=== PATIENT | male | born 1995 | race Caucasian/White ===

== ENCOUNTER 2017-05-10 23:19 | Observation (INO) ==
[2017-05-10 23:44] LABS: Bilirubin,Urine Negative (Negative); Blood,Urine Negative (Negative); Clarity,Urine Clear (Clear); Color,Urine Yellow (Yellow); Glucose,Urine (UA) Normal (Normal); Ketones,Urine Negative (Negative); Leukocyte Esterase,Urine Negative (Negative); Nitrite,Urine Negative (Negative); Protein,Urine Negative (Neg-Trace); Specific Gravity,Urine 1.026 (1.010-1.025); Urobilinogen,Urine Normal (Normal)
[2017-05-10 23:49] LABS: Amphetamine Screen,Urine Negative ng/mL (Cutoff=1000); Barbiturate Screen,Urine Negative ng/mL (Cutoff=200); Benzodiazepines Screen,Urine Negative ng/mL (Cutoff=200); Cannabinoid Screen,Urine Negative ng/mL (Cutoff = 50); Cocaine Screen,Urine Negative ng/mL (Cutoff= 300); Opiate Screen,Urine Negative ng/mL (Cutoff=300); Phencyclidine Screen,Urine Negative ng/mL (Cutoff=25)
--- NOTE | 2017-05-10 23:56 | Emergency Department Note ---
Disposition Clinical Impression: Suicidal ideation Disposition: Admitted As Inpatient Condition: Good Referrals: NONE,PCP [Primary Care Provider] - Vinnie Cuevas DO [Family Provider] - Forms: ED Satisfaction Letter Time of Disposition: 04:16 Psych HPI - General Chief Complaint: ED Psychiatric Symptoms Stated Complaint: "SI" Time Seen by Provider: 05/10/17 23:24 Source: patient Mode of arrival: ambulatory Limitations: no limitations Nursing Notes Reviewed: Yes Vital Signs Reviewed: Yes - History of Present Illness HPI Narrative: 21 year old male has been having increased thought of siuicidal ideation but no set plan in place. Patient states that this has been going on for some time now and has no history of suicideal attempts , depression or anxiety in the past. Patient states has a flat affect, and short aburpt answers. He has not had a [facility] admission in the past and denies visual/audiotry hallucinations. Reba has no other complaints at this time - Related Data Home Medications Medication Instructions Recorded Confirmed Buspirone HCl [Buspar] 7.5 mg PO BID 05/11/17 05/11/17 clonazePAM [Klonopin] 1 mg PO PRN PRN 05/11/17 05/11/17 Allergies Allergy/AdvReac Type Severity Reaction Status Date / Time fluoxetine [From Prozac] Allergy "didn't Verified 05/11/17 00:43 see to work" Constitutional: Denies: fever, chills, weakness, weight change Eyes: Denies: eye pain, eye discharge, vision change ENT ED: Denies: ear pain, throat pain, dental pain, hearing loss, epistaxis, congestion, dysphagia Cardiovascular: Denies: chest pain, palpitations, dyspnea on exertion, edema, syncope Respiratory: Denies: cough, dyspnea, wheezes, hemoptysis, stridor Gastrointestinal: Denies: abdominal pain, nausea, vomiting, diarrhea, constipation, hematemesis, melena, hematochezia Genitourinary: Denies: urgency, dysuria, frequency, hematuria Musculoskeletal: Denies: back pain, neck pain, arthralgia, myalgia Integumentary: Denies: rash, abrasion, lesions Neurological: Denies: headache, weakness, numbness, paresthesias, confusion, abnormal gait, vertigo Psychiatric: Reports: suicidal thoughts. Denies: anxiety, depression, homicidal thoughts, auditory hallucinations, visual hallucinations Endocrine: Denies: fatigue Hematological/Lymphatic: Denies: easy bleeding, easy bruising Allergic/Immunologic: Denies: facial swelling, urticaria Past Medical History - Past Medical History Medical history: Reports: kidney stones Psychiatric history: Reports: anxiety, depression - Social History Smoking Status: Never smoker Alcohol use: Reports: rarely Drug use: Reports: none Physical Exam - General Limitations: no limitations General appearance: alert - Head Head exam: atraumatic, normocephalic, normal inspection - Eye Eye exam: Present: normal appearance, PERRL, EOMI - Expanded Eye Exam Pupils: Left: reactive - ENT ENT exam: normal exam, normal oropharynx, mucous membranes moist - Expanded ENT Exam External ear exam: Present: normal external inspection Mouth exam: Present: normal external inspection Teeth exam: Present: normal inspection Throat exam: Present: normal inspection - Neck Neck exam: Present: normal inspection, full ROM, trachea midline - Chest Chest inspection: Present: normal inspection, symmetric chest wall rise - Respiratory Respiratory exam: Present: normal lung sounds bilaterally - Cardiovascular Cardiovascular exam: Present: regular rate, normal rhythm, normal heart sounds - Abdominal Exam Abdominal exam: Present: soft, Non-Tender. Absent: tenderness, distention, guarding, rebound, rigidity - Extremities Exam Extremities exam: Present: normal inspection, full ROM. Absent: tenderness, pedal edema - Expanded Upper Extremity Exam Shoulder exam: Present: normal inspection, full ROM Arm exam: Present: normal inspection, full ROM Elbow exam: Present: normal inspection, full ROM Forearm/Wrist exam: Present: normal inspection, full ROM Hand exam: Present: normal inspection, full ROM Vascular exam: Normal: capillary refill, radial pulse - Expanded Lower Extremity Exam Hip/Pelvis exam: Present: normal inspection, full ROM Upper leg exam: Present: normal inspection, full ROM Knee exam: Present: normal inspection, full ROM Lower leg exam: Present: normal inspection, full ROM Ankle exam: Present: normal inspection, full ROM Foot/toe exam: Present: normal inspection, full ROM Neurovascular/Tendon exam: Absent: motor deficit, sensory deficit, tendon deficit - Back Exam Back exam: Present: normal inspection, full ROM. Absent: tenderness - Neurological Exam Neurological exam: Present: alert, oriented X3 - Expanded Neurological Exam Patient oriented to: Present: person, place, time Coma Scale Eye Opening: Spontaneous Coma Scale Motor Response: Obeys Commands Coma Scale Verbal Response: Oriented Coma Scale Total: 15 - Psychiatric Psychiatric exam: Present: depressed, flat affect, suicidal ideation - Skin Skin exam: Present: warm, dry, intact, normal color Course Course Narrative: we will do a medical clearance and then do a 1A consult for pysch clearance. Patient is stable and in no acute distress - Reevaluation(s) Reevaluation #1: patinet is medically cleared. 1A consutled. Time: 01:17 - Consultations Consultation #1: 1A accepts patinte for admission. Time: 04:15 Vital Signs Temperature 98.7 F 05/10/17 23:21 Pulse Rate 86 05/10/17 23:21 Respiratory Rate 16 05/10/17 23:21 Blood Pressure 133/81 05/10/17 23:21 O2 Sat by Pulse Oximetry 100 05/10/17 23:21 Temperature 98.7 F 05/10/17 23:21 Pulse Rate 81 05/11/17 03:47 Respiratory Rate 20 05/11/17 03:47 Blood Pressure 120/78 05/11/17 03:47 O2 Sat by Pulse Oximetry 97 05/11/17 03:47 Oxygen Delivery Oxygen Delivery Room Air Psych - Lab Data Result diagrams: 05/11/17 00:05 05/11/17 00:05 Lab Results 05/10/17 05/10/17 05/11/17 Range/Units 23:35 23:35 00:05 WBC 9.1 (4.3-11.1) K/mcL RBC 4.38 (4.19-5.50) M/mcL Hgb 13.7 (12.9-16.9) g/dL Hct 38.2 (37.5-50.1) % MCV 87.2 (83.0-100.0) fL MCH 31.3 (28.0-33.3) pg MCHC 35.9 H (31.6-35.5) g/dL RDW 11.8 (11.5-14.5) % Plt Count 184 (140-400) K/mcL MPV 9.7 (9.4-12.4) fL Immature Gran % 0.4 (0-4) % Seg Neutrophils % 66.1 % Lymphocytes % 22.5 % Monocytes % 9.6 % Eosinophils % 1.0 % Basophils % 0.4 % Neutrophils # 6.0 (1.6-8.9) K/mcL Lymphocytes # 2.1 (0.6-4.6) K/mcL Monocytes # 0.9 (0.0-1.3) K/mcL Eosinophils # 0.1 (0.0-0.6) K/mcL Basophils # 0.0 (0.0-0.2) K/mcL Immature Plt Fraction 3.7 (1.1-6.1) % Sodium (136-145) mEq/L Potassium (3.5-4.5) mEq/L Chloride (98-109) mEq/L Carbon Dioxide (19-29) mEq/L BUN (8-26) mg/dL Creatinine (0.72-1.25) mg/dL Est GFR ( Amer) (> 60) Est GFR (Non-Af Amer) (> 60) BUN/Creatinine Ratio (6-26) Glucose (70-99) mg/dL Calculated Osmolality (280-300) Calcium (8.6-10.8) mg/dL Urine Color Yellow (Yellow) Urine Clarity Clear (Clear) Urine pH 6.0 (5.0-8.0) pH Units Ur Specific [place] 1.026 H (1.010-1.025) Urine Protein Negative (Neg-Trace) mg/dL Urine Glucose (UA) Normal (Normal) mg/dL Urine Ketones Negative (Negative) mg/dL Urine Blood Negative (Negative) Urine Nitrite Negative (Negative) Urine Bilirubin Negative (Negative) Urine Urobilinogen Normal (Normal) mg/dL Ur Leukocyte Esterase Negative (Negative) Salicylates (15-30) mg/dL Urine Opiates Screen Negative (Lqwtiz=755) ng/mL Acetaminophen (10-30) mcg/mL Ur Barbiturates Screen Negative (Gnnxuo=293) ng/mL Ur Phencyclidine Scrn Negative (Cutoff=25) ng/mL Ur Amphetamines Screen Negative (Fywxyi=8569) ng/mL U Benzodiazepines Scrn Negative (Bodpha=454) ng/mL Urine Cocaine Screen Negative (Cutoff= 300) ng/mL U Marijuana (THC) Screen Negative (Cutoff = 50) ng/mL Ethyl Alcohol (0-10) mg/dL 05/11/17 Range/Units 00:05 WBC (4.3-11.1) K/mcL RBC (4.19-5.50) M/mcL Hgb (12.9-16.9) g/dL Hct (37.5-50.1) % MCV (83.0-100.0) fL MCH (28.0-33.3) pg MCHC (31.6-35.5) g/dL RDW (11.5-14.5) % Plt Count (140-400) K/mcL MPV (9.4-12.4) fL Immature Gran % (0-4) % Seg Neutrophils % % Lymphocytes % % Monocytes % % Eosinophils % % Basophils % % Neutrophils # (1.6-8.9) K/mcL Lymphocytes # (0.6-4.6) K/mcL Monocytes # (0.0-1.3) K/mcL Eosinophils # (0.0-0.6) K/mcL Basophils # (0.0-0.2) K/mcL Immature Plt Fraction (1.1-6.1) % Sodium 138 (136-145) mEq/L Potassium 3.8 (3.5-4.5) mEq/L Chloride 105 (98-109) mEq/L Carbon Dioxide 25 (19-29) mEq/L BUN 13 (8-26) mg/dL Creatinine 0.87 (0.72-1.25) mg/dL Est GFR ( Amer) > 60 (> 60) Est GFR (Non-Af Amer) > 60 (> 60) BUN/Creatinine Ratio 15 (6-26) Glucose 95 (70-99) mg/dL Calculated Osmolality 286 (280-300) Calcium 9.4 (8.6-10.8) mg/dL Urine Color (Yellow) Urine Clarity (Clear) Urine pH (5.0-8.0) pH Units Ur Specific [place] (1.010-1.025) Urine Protein (Neg-Trace) mg/dL Urine Glucose (UA) (Normal) mg/dL Urine Ketones (Negative) mg/dL Urine Blood (Negative) Urine Nitrite (Negative) Urine Bilirubin (Negative) Urine Urobilinogen (Normal) mg/dL Ur Leukocyte Esterase (Negative) Salicylates < 5.0 L (15-30) mg/dL Urine Opiates Screen (Ikhgvh=212) ng/mL Acetaminophen < 1.0 L (10-30) mcg/mL Ur Barbiturates Screen (Klqydt=981) ng/mL Ur Phencyclidine Scrn (Cutoff=25) ng/mL Ur Amphetamines Screen (Zxuogd=6322) ng/mL U Benzodiazepines Scrn (Txlyrp=787) ng/mL Urine Cocaine Screen (Cutoff= 300) ng/mL U Marijuana (THC) Screen (Cutoff = 50) ng/mL Ethyl Alcohol < 10 (0-10) mg/dL Psychiatric Medical Clearance - Medical Clearance Checklist Medical History: No Social History Section defined Current Vitals: Last Vital Signs Temp 98.7 F 05/10/17 23:21 Pulse 81 05/11/17 03:47 Resp 20 05/11/17 03:47 BP 120/78 05/11/17 03:47 Pulse Ox 97 05/11/17 03:47 Psychiatric Lab Panel: Drug Levels and Toxicity 05/10/17 05/11/17 23:35 00:05 Urine Opiates Screen Negative Acetaminophen < 1.0 L Ur Barbiturates Screen Negative Ur Phencyclidine Scrn Negative Ur Amphetamines Screen Negative U Benzodiazepines Scrn Negative Urine Cocaine Screen Negative U Marijuana (THC) Screen Negative Ethyl Alcohol < 10 Abnormal Labs: Abnormal lab results MCHC 35.9 g/dL (31.6-35.5) H 05/11/17 00:05 Ur Specific [place] 1.026 (1.010-1.025) H 05/10/17 23:35 Salicylates < 5.0 mg/dL (15-30) L 05/11/17 00:05 Acetaminophen < 1.0 mcg/mL (10-30) L 05/11/17 00:05 Statement of Medical Clearance: I have evaluated the patient, reviewed diagnostic information, and certify that the patient's medical condition is sufficiently stable that transfer to the psychiatric unit does not pose a significant risk of deterioration.
[2017-05-11 00:10] LABS: Basophils % 0.4 %; Eosinophils # 0.1 K/mcL (0.0-0.6); Hematocrit 38.2 % (37.5-50.1); Hemoglobin 13.7 g/dL (12.9-16.9); Immature Granulocytes % 0.4 % (0-4); Immature Platelets 3.7 % (1.1-6.1); Lymphocytes # 2.1 K/mcL (0.6-4.6); Lymphocytes % 22.5 %; Mean Corpuscular HGB Conc 35.9 g/dL (31.6-35.5); Mean Corpuscular Hemoglobin 31.3 pg (28.0-33.3); Mean Corpuscular Volume 87.2 fL (83.0-100.0); Mean Platelet Volume 9.7 fL (9.4-12.4); Monocytes # 0.9 K/mcL (0.0-1.3); Monocytes % 9.6 %; Platelet Count 184 K/mcL (140-400); Red Blood Count 4.38 M/mcL (4.19-5.50); Red Cell Distribution Width 11.8 % (11.5-14.5); Segmented Neutrophils % 66.1 %
[2017-05-11 00:24] LABS: BUN/Creatinine Ratio 15 (6-26); Blood Urea Nitrogen 13 mg/dL (8-26); Calcium 9.4 mg/dL (8.6-10.8); Carbon Dioxide 25 mEq/L (19-29); Chloride 105 mEq/L (98-109); Glucose 95 mg/dL (70-99); Osmolality,Calculated 286 (280-300); Potassium 3.8 mEq/L (3.5-4.5); Sodium 138 mEq/L (136-145); eGFR For African Americans > 60 (> 60); eGFR For Non-African Americans > 60 (> 60)
[2017-05-11 00:38] LABS: Acetaminophen < 1.0 mcg/mL (10-30); Ethanol < 10 mg/dL (0-10)
[2017-05-11 00:50] LABS: Salicylate < 5.0 mg/dL (15-30)
[2017-05-11] MEDS ORDERED: MOM Conc 10 ML UD.LIQ PO PRN (04:27)
[2017-05-11] MEDS ORDERED: hydrOXYzine pamoate 25 MG CAPSULE PO PRN (04:27)
[2017-05-11] MEDS ORDERED: Acetaminophen 325 MG TABLET PO PRN (04:27)
[2017-05-11] MEDS ORDERED: Haloperidol Lactate 5 MG/ML VIAL IM PRN (04:27)
[2017-05-11] MEDS ORDERED: *HR* LORazepam 1 MG TABLET PO PRN (04:27)
[2017-05-11] MEDS ORDERED: Mag Hydrox/Al Hydrox/Simeth 30 ML UDC PO PRN (04:27)
[2017-05-11] MEDS ORDERED: *HR* LORazepam 2 MG/ML VIAL IM PRN (04:27)
[2017-05-11] MEDS ORDERED: traZODone 50 MG TABLET PO PRN (04:27)
[2017-05-11 09:42] VITALS: BP 116/74
--- NOTE | 2017-05-11 11:20 | Psychiatry History & Physical ---
Date of Encounter: 05/11/17 Time of Encounter: 10:47 History of Present Illness Patient Stated Chief Complaint: "I have been dealing with a lot of stressors" Medicare Admission Attestation: For traditional Medicare patients the provided hospital inpatient services are reasonable and necessary and in the case of services not specified as inpatient -only under 42 CFR 419.22 (n), that they are appropriately provided as inpatient services in accordance 42 CFR 412.3. For Critical Access Hospital the patient may reasonably be expected to be discharged or transferred to a hospital within 96 hours after admission to the Critical Access Hospital. Admitted From: Emergency Dept Plans for Post Hospital Care: Home History of Present Illness: Mr. Diaz is a 21 year old male who is engaged in his senior at [employer] referred for hospitalization from emergency department where he presented with hopeless helpless feelings along with anxiety and nervousness and thoughts of not wanting to be around. He denies any suicidal plan. The patient reported that he has been going through a lot of stressors in his life which included his parents getting and him worrying about his sister who is 14 years old, he also reported being overwhelmed with the school work he is a senior and took too many courses which is causing a lot of stress. 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 Patient reported because of all the stressors and challenges he started to feel as if he has been cornered. He reported on the day of admission he told his mother that he just wanted to be alone and does not want to wish around. Mother got concerned brought him to the hospital and he was hospitalized for observation. During the interview today patient appeared calm and controlled. He is denying any suicidal or homicidal ideations we talked at length about his ongoing challenges and stressors. He is future oriented and already working on a way to decrease his work and school hours. He reported a very supportive family. He requested to be discharged so he can focus on his life and move on. He assured me that he would never do anything to hurt himself as he has so much to live for. Past Med Surg Social Fam HX - Past Medical History Medical history: kidney stones - Past Psychiatric History Psychiatric history: Reports: no psych history. Denies: previous psychiatric hospitalization Past psychiatric history details: Patient has no prior psych treatment. Never been hospitalized. No prior suicide attempts. Family psychiatric history: No Family History of Suicide: None - Social History Smoking Status: Current some day smoker Smokeless Tobacco Status: No Alcohol use: rarely Drug use: none Occupational status: student Current living situation: Other (the patient resides in an apartment with roommates near his college) Recent Out of Country Travel Within the Last 8 Weeks: No Exposure or Possible Exposure to Illness During Travel: No Additional social history: Patient was born and raised in [place]. He reported good childhood. Patient denies any physical or sexual abuse. He graduated high school. He has 1 younger sister who is 14 years old. He is currently a senior at [employer] in finishing his bachelor's in business management. He is also working at [employer] as an news intern. He is engaged and reported good relationship with his fiancee. He resides near his University in a rental apartment with some college mates. His parents are going through divorce. He denies any legal issues - Family History Mother Hx Family Genitourinary Disorders: Yes (kidney stones) Medications & Allergies Buspirone HCl [Buspar] 7.5 mg PO BID 05/11/17 [History] clonazePAM [Klonopin] 1 mg PO PRN PRN 05/11/17 [History] 3 Allergy/AdvReac Type Severity Reaction Status Date / Time fluoxetine [From Prozac] Allergy "didn't Verified 05/11/17 00:43 see to work" Review of Systems Psychiatric: Reports: anxiety Mental Status Exam Patient orientation: Yes Person, Yes Time, Yes Place Level of alertness: Alert Patient appearance: Appropriate, Well Groomed Behavior: calm, cooperative Psychomotor activity: Normal Eye contact: Maintains Eye Contact Mood description: Euthymic/stable Affect description: congruent with mood, full range Speech pattern: Normal rate, Normal rhythm, Normal tone Speech volume: Normal Thought process: Linear, Goal Oriented Thought content: No Suicidal ideation, No Homicidal ideation, No Overt delusions Perceptual disturbances: No Auditory hallucinations, No Visual hallucinations Attention span: Capable of Focused Attention Memory description: Grossly Intact Patient reliability: Reliable Historian Intelligence estimate: Average Judgment: Limited Insight: Partial Exam - HEENT Head exam IM: Present: atraumatic, normal inspection Eye exam IM: Present: normal appearance ENT exam IM: Present: normal exam - Neurological Neurological exam IM: Present: CN II-XII intact, normal gait, oriented X3, reflexes normal. Absent: motor sensory deficit - Respiratory Respiratory exam IM: Absent: respiratory distress - GI/Abdominal GI/Abdominal exam IM: Present: normal bowel sounds, soft. Absent: tenderness - Extremities Extremities exam IM: Present: full ROM, normal inspection - Skin Skin exam IM: Present: normal color Results - Vital Signs Vital signs: Temp Pulse Resp BP Pulse Ox 98.9 F 99 16 116/74 97 05/11/17 09:00 05/11/17 09:00 05/11/17 09:00 05/11/17 09:00 05/11/17 03:47 - Labs Labs: Laboratory Last Values WBC 9.1 K/mcL (4.3-11.1) 05/11/17 00:05 RBC 4.38 M/mcL (4.19-5.50) 05/11/17 00:05 Hgb 13.7 g/dL (12.9-16.9) 05/11/17 00:05 Hct 38.2 % (37.5-50.1) 05/11/17 00:05 MCV 87.2 fL (83.0-100.0) 05/11/17 00:05 MCH 31.3 pg (28.0-33.3) 05/11/17 00:05 MCHC 35.9 g/dL (31.6-35.5) H 05/11/17 00:05 RDW 11.8 % (11.5-14.5) 05/11/17 00:05 Plt Count 184 K/mcL (140-400) 05/11/17 00:05 MPV 9.7 fL (9.4-12.4) 05/11/17 00:05 Immature Gran % 0.4 % (0-4) 05/11/17 00:05 Seg Neutrophils % 66.1 % 05/11/17 00:05 Lymphocytes % 22.5 % 05/11/17 00:05 Monocytes % 9.6 % 05/11/17 00:05 Eosinophils % 1.0 % 05/11/17 00:05 Basophils % 0.4 % 05/11/17 00:05 Neutrophils # 6.0 K/mcL (1.6-8.9) 05/11/17 00:05 Lymphocytes # 2.1 K/mcL (0.6-4.6) 05/11/17 00:05 Monocytes # 0.9 K/mcL (0.0-1.3) 05/11/17 00:05 Eosinophils # 0.1 K/mcL (0.0-0.6) 05/11/17 00:05 Basophils # 0.0 K/mcL (0.0-0.2) 05/11/17 00:05 Immature Plt Fraction 3.7 % (1.1-6.1) 05/11/17 00:05 Sodium 138 mEq/L (136-145) 05/11/17 00:05 Potassium 3.8 mEq/L (3.5-4.5) 05/11/17 00:05 Chloride 105 mEq/L (98-109) 05/11/17 00:05 Carbon Dioxide 25 mEq/L (19-29) 05/11/17 00:05 BUN 13 mg/dL (8-26) 05/11/17 00:05 Creatinine 0.87 mg/dL (0.72-1.25) 05/11/17 00:05 Est GFR ( Amer) > 60 (> 60) 05/11/17 00:05 Est GFR (Non-Af Amer) > 60 (> 60) 05/11/17 00:05 BUN/Creatinine Ratio 15 (6-26) 05/11/17 00:05 Glucose 95 mg/dL (70-99) 05/11/17 00:05 Calculated Osmolality 286 (280-300) 05/11/17 00:05 Calcium 9.4 mg/dL (8.6-10.8) 05/11/17 00:05 Urine Color Yellow (Yellow) 05/10/17 23:35 Urine Clarity Clear (Clear) 05/10/17 23:35 Urine pH 6.0 pH Units (5.0-8.0) 05/10/17 23:35 Ur Specific [place] 1.026 (1.010-1.025) H 05/10/17 23:35 Urine Protein Negative mg/dL (Neg-Trace) 05/10/17 23:35 Urine Glucose (UA) Normal mg/dL (Normal) 05/10/17 23:35 Urine Ketones Negative mg/dL (Negative) 05/10/17 23:35 Urine Blood Negative (Negative) 05/10/17 23:35 Urine Nitrite Negative (Negative) 05/10/17 23:35 Urine Bilirubin Negative (Negative) 05/10/17 23:35 Urine Urobilinogen Normal mg/dL (Normal) 05/10/17 23:35 Ur Leukocyte Esterase Negative (Negative) 05/10/17 23:35 Salicylates < 5.0 mg/dL (15-30) L 05/11/17 00:05 Urine Opiates Screen Negative ng/mL (Faxjeo=311) 05/10/17 23:35 Acetaminophen < 1.0 mcg/mL (10-30) L 05/11/17 00:05 Ur Barbiturates Screen Negative ng/mL (Mjzuws=890) 05/10/17 23:35 Ur Phencyclidine Scrn Negative ng/mL (Cutoff=25) 05/10/17 23:35 Ur Amphetamines Screen Negative ng/mL (Wxzkvh=9966) 05/10/17 23:35 U Benzodiazepines Scrn Negative ng/mL (Jzzseh=490) 05/10/17 23:35 Urine Cocaine Screen Negative ng/mL (Cutoff= 300) 05/10/17 23:35 U Marijuana (THC) Screen Negative ng/mL (Cutoff = 50) 05/10/17 23:35 Ethyl Alcohol < 10 mg/dL (0-10) 05/11/17 00:05 Assessment and Plan (1) Adjustment disorder with mixed anxiety and depressed mood Current visit: Yes Status: Acute Plan: Admit inpatient for safety and stabilization, Close observation, Suicide Precautions per unit protocol, Encourage participation in unit milieu, Group Therapy, Monitor sleep, Monitor appetite Risks, benefits, side effects, alternatives discussed w/pt: Yes Patient agreeable to treatment: Yes Estimated Length of Stay (Days): 1
--- NOTE | 2017-05-11 11:28 | Discharge Summary ---
Date of Encounter: 05/11/17 Time of Encounter: 10:47 Diagnosis - Discharge Diagnosis (1) Adjustment disorder with mixed anxiety and depressed mood Status: Acute Medications - Discharge Medications 3 Allergy/AdvReac Type Severity Reaction Status Date / Time fluoxetine [From Prozac] Allergy "didn't Verified 05/11/17 00:43 see to work" Provider Date of admission: 05/11/17 04:21 Primary care physician: PCP NONE Discharging clinician: Dakotah Pace Assessment and Plan - Patient/Caregiver Discharge Instructions Activity: resume usual activities as tolerated Diet: regular diet - Follow up Plan Follow up with: NONE,PCP [Primary Care Provider] - Vinnie Cuevas DO [Family Provider] - Functional capacity at discharge: independent ambulation Overall status at discharge: Stable Disposition: Home, Self-Care Hospital Course Hospital course: Mr. Diaz is a 21 year old male who was referred for hospitalization from emergency department where he presented with symptoms of depression and anxiety along with thoughts of not wanting to be around. Patient was not suicidal on admission. The next day on interview patient appeared extremely calm and controlled and relax. Able to verbalize a safety plan. Appears very future oriented. He did report that he has been pacing some challenges and brought himself to the emergency department so that he could have an opportunity to talk with someone. He told me very clearly that he has too much to look live for and has no intention of harming or hurting himself. He reported that he wants to be with his family. Patient does not wish to start any medications and wants to address his issues and challenges through counseling. Family is coming for visitation. We will sit down with the family and go over a safety plan and we will discharge the patient. Patient is a student in [employer] and is already scheduled to see a counselor on Saturday. Time spent discussing smoking cessation with patient: 3 to 10 minutes Does patient wish to continue nicotine replacement upon disc: No - Time Spent with Patient Total time spent providing and/or coordinating discharge services: Less than 30 minutes Quality - Multiple Antipsychotics Patient discharged on 2 or more antipsychotic medications: No Procedures - Procedures Procedures: Medication Management, Crisis Stabilization, Supportive Therapy, Group Therapy, Psychoeducational Therapy Mental Status Exam - Mental Status Exam Patient orientation: Yes Person, Yes Time, Yes Place Level of alertness: Alert Patient appearance: Appropriate, Well Groomed Behavior: calm, cooperative Psychomotor activity: Normal Eye contact: Maintains Eye Contact Mood description: Euthymic/stable Affect description: congruent with mood, full range Speech pattern: Normal rate, Normal rhythm, Normal tone Speech Volume: Normal Thought process: Linear, Goal Oriented Thought Content: No Suicidal ideation, No Homicidal ideation, No Overt delusions Perceptual Disturbances: No Auditory hallucinations, No Visual hallucinations Judgment: Limited Insight: Partial
== END 2017-05-11 12:50 | disposition home or self-care (01) ==
LOC: EMEROO 23:19 → INTOOBSV 05-11 04:21 → 1ANU 05-11 04:21
PROVIDERS: ADMIT Psychiatry & Neurology Psychiatry; ATTEND Psychiatry & Neurology Psychiatry